=== PATIENT | male | born 1940 | race Caucasian/White ===

== ENCOUNTER 2016-07-04 | Outpatient (CLI) | payer MEDICARE, OTHER | END 2016-07-04 09:31 | disposition home or self-care (01) ==

== ENCOUNTER 2016-07-31 15:30 | Outpatient (CLI) | payer MEDICARE, OTHER | END 2016-07-31 15:31 | disposition home or self-care (01) | DX: J69.0 Pneumonitis due to inhalation of food and vomit (principal); G12.20 Motor neuron disease, unspecified; J44.9 Chronic obstructive pulmonary disease, unspecified; F41.9 Anxiety disorder, unspecified; R13.10 Dysphagia, unspecified; L89.894 Pressure ulcer of other site, stage 4; S91.109D Unspecified open wound of unspecified toe(s) without damage to nail, subsequent encounter; M24.573 Contracture, unspecified ankle; M24.576 Contracture, unspecified foot; N40.0 Benign prostatic hyperplasia without lower urinary tract symptoms; I25.10 Atherosclerotic heart disease of native coronary artery without angina pectoris; Z74.01 Bed confinement status; Z66 Do not resuscitate; Z51.5 Encounter for palliative care ==